=== PATIENT | male | born 1960 | race Caucasian/White ===

== ENCOUNTER 2024-02-23 12:06 | Emergency (ER) | payer OTHER, SELFPAY ==
[2024-02-23 12:19] VITALS: BP 142/88
[2024-02-23 12:37] LABS: % Basophils 0.5 % (0-2); % Eosinophils 2.8 % (0-6); % Immature Granulocytes 0.9 % (0-0.5); % Lymphocytes 21.8 % (20.5-51.1); % Monocytes 6.6 % (1.7-9.3); % Neutrophils 67.4 % (42.2-75.2); Absolute Eosinophils 0.2 10^3/uL (0-0.7); Absolute Immature Granulocytes 0.1 10^3/uL (0-0.05); Absolute Lymphocytes 1.2 10^3/uL (1.2-3.4); Absolute Monocytes 0.4 10^3/uL (0.1-0.6); Absolute Neutrophils 3.8 10^3/uL (1.4-6.5); Hematocrit 34.6 % (39.0-52.0); Hemoglobin 11.3 g/dL (13.0-18.0); Mean Corp Hgb Conc. 32.7 g/dL (33.0-37.0); Mean Corpuscular Hgb 19.6 pg (27.0-31.0); Mean Corpuscular Volume 59.9 fL (80.0-94.0); Nucleated Red Blood Cells % 0 % (-); Platelet Count 183 10^3/uL (130-400); Red Blood Cell Count 5.78 10^6/uL (4.70-6.10); Red Cell Dist. Width 16.3 % (11.5-14.5); White Blood Cell Count 5.6 10^3/uL (4.8-10.8)
[2024-02-23 12:52] VITALS: BP 149/89
[2024-02-23 13:00] VITALS: BP 126/78
[2024-02-23 13:00] LABS: ALT (SGPT) 37 U/L (0-50); AST (SGOT) 35 U/L (17-59); Albumin 4.9 g/dl (3.5-5.0); Alkaline Phosphatase 88 U/L (38-126); Blood Urea Nitrogen 20 mg/dl (9-20); Calcium 9.9 mg/dl (8.4-10.2); Carbon Dioxide 27 mmol/L (22-30); Chloride 106 mmol/L (98-107); Glucose 101 mg/dl (70-99); Potassium 4.6 mmol/L (3.5-5.1); Sodium 143 mmol/L (135-145); Total Bilirubin 0.9 mg/dl (0.2-1.3); Total Protein 7.6 g/dl (6.3-8.2); eGFR > 60.00
[2024-02-23 13:04] LABS: Troponin I < 0.012 ng/ml
[2024-02-23 15:38] LABS: Troponin I < 0.012 ng/ml
--- NOTE | 2024-02-23 16:39 | ED.GENMED ---
History of Present Illness
General
Chief Complaint: Chest Pain
Source: patient
Exam Limitations: none
Time Seen by Provider: 02/23/24 13:00
Nursing documentation reviewed up to this point in time: agreed with
Travel History
Have you had any contact with someone who has COVID-19?: No
Do you have any symptoms of coronavirus? Fever > 100 degrees, chills, cough, shortness of breath, sore throat, loss of taste or smell, muscle aches, or headache?: No
History of Present Illness
History of Present Illness:
Patient with history of hypertension and hypercholesterolemia, presents to ED secondary to sudden onset of left arm pain radiating up to his shoulder blade, while he was sitting down working. Denies chest pain or shortness of breath. Denies
dizziness. Denies diaphoresis. Denies nausea or vomiting. Denies neck pain. Denies loss of sensation or weakness. Denies headache. Denies recent illness. Denies recent change in medications or diet. Denies previous history of similar
symptoms. There is family history of heart disease. Patient does not smoke but does drink alcohol socially. Denies recent travel or surgery. Denies leg pain or swelling. Arm pain described as sharp, intermittent, with complete resolution of
symptoms at time of evaluation. Symptoms may have lasted less than an hour.
Past History
Past History
ED Past Medical History: Other (Thalassemia Minor Hgb has been as low as 8 in the past, highest 12.0)
ED Past Surgical History: Cholecystectomy
Social History
Tobacco: Non-smoker
Alcohol: Occasional
Personal:
Living: with family
Employment: Employed (manager gallery)
Review of Systems
Review of Systems
Allergies reviewed?: Yes
All Other Systems: ROS reviewed and negative except as documented in HPI and ROS
Constitutional: Reports no symptoms
EENT: Reports no symptoms
Respiratory: Reports no symptoms
Cardiac: Reports no symptoms
ABD/GI: Reports no symptoms
: Reports no symptoms
Musculoskeletal: Reports other (arm pain)
Skin: Reports no symptoms
Neurological: Reports no symptoms
Phy Exam
Physical Exam
Physical Exam:
Physical Exam
General: no apparent distress, not acutely ill. afebrile
Head: nc/at. eomi
Neck: supple. no meningeal signs. normal range of motion
Heart: s1/s2 regular rate and rhythm, no murmur. equal radial pulses.
Lungs: no acute respiratory distress. clear bilaterally
Abdomen: normal bowel sounds. not tender.
Neuro: alert and oriented. no focal neurological deficits
Skin: no rash
Psychiatric: well kept. interactive and cooperative
Extremities: no edema. no calf tenderness.
Scores
Heart Score for Chest Pain Patients
STEMI patient?: No
History: Slightly or Non-Suspicious
ECG: Normal
Age: >45 - <65 years
Risk Factors: 1 or 2 Risk Factors
Troponin: </= Normal Limit
Heart Score for Chest Pain Patients: 2
Heart Score Risk: 2.5% MACE over next 6 weeks
Course
Orders/Labs/Results
Orders:
Orders
02/23/24 12:08
Electrocardiogram (*1) Urgent
Reason for Study: Chest Pain
EKG- Treatment ONCE
02/23/24 12:27
Complete Blood Count/With Diff Urgent
Comprehensive Metabolic Panel Urgent
Troponin I Urgent
02/23/24 14:27
EKG- Treatment ONCE
02/23/24 14:55
Troponin I Urgent
02/23/24 15:00
Electrocardiogram (*1) Urgent
Reason for Study: Chest Pain
Abnormal Lab Results
02/23/24
12:27
Hgb 11.3 L g/dL
(13.0-18.0)
Hct 34.6 L %
(39.0-52.0)
MCV 59.9 L fL
(80.0-94.0)
MCH 19.6 L pg
(27.0-31.0)
MCHC 32.7 L g/dL
(33.0-37.0)
RDW 16.3 H %
(11.5-14.5)
Abs Immat Gran (auto) 0.1 H 10^3/uL
(0-0.05)
Immature Gran % 0.9 H %
(0-0.5)
Glucose 101 H mg/dl
(70-99)
02/23/24 12:27
02/23/24 12:27
Vital Signs
Initial and Last Documented VS:
Initial Vital Signs
Temp Pulse Resp BP Pulse Ox
98.1 F 62 18 142/88 99
02/23/24 12:19 02/23/24 12:19 02/23/24 12:19 02/23/24 12:19 02/23/24 12:19
Last Documented Vital Signs
Temp Pulse Resp BP Pulse Ox
98.1 F 56 18 126/78 97
02/23/24 12:19 02/23/24 13:45 02/23/24 16:46 02/23/24 16:46 02/23/24 16:46
MDM/Problems Addressed
MDM/Problems Addressed:
Patient with an atypical left arm pain, more likely musculoskeletal in etiology, less likely ACS. However, there is family history of heart disease, as such, patient will be discharged with referral to cardiology for an outpatient consultation.
Advised to return to ED with worsening symptoms.
*Critical Care Note
Total Time (30-74mins, 75-104mins- exclusive of procedures): Not Applicable
ED Attending Note
-
Portions of this chart may have been created with voice recognition software.� Occasional wrong word or��sound alike� substitutions may have occurred due to the inherent limitations of voice recognition software.
Discharge Plan
Departure
Patient Disposition: Home (Routine Discharge)
Date of Disposition: 02/23/24
Time of Disposition: 16:40
Patient with high blood pressure during this ER visit?: Yes
Discharge Problem:
Chest pain
Instructions: Chest Pain DCA Follow Up
Prescriptions:
No Action
aspirin 81 MG tablet,chewable
81 mg PO DAILY
escitalopram oxalate 10 MG tablet
10 mg PO DAILY
fenofibrate nanocrystallized 145 MG tablet
145 mg PO DAILY
Referrals:
Osmany Avalos MD [Active] -
Pako Santiago DO [Family Provider] -
Activity Restrictions/Additional Instructions:
As discussed, please follow-up with your [facility] for further evaluation and treatment. Please return to ED with worsening symptoms. You will be receiving phone call from [facility] office for an urgent outpatient consultation.
Interventions
Interventions:
*Risk Screen - Suicide Last Done: 02/23/24 16:46
*General Assessment Last Done: 02/23/24 16:46
*Neglect/Abuse Screening Last Done: 02/23/24 16:46
ED- Fall Risk Assessment Last Done: 02/23/24 16:46
*ED COVID-19 Vaccine History Last Done: 02/23/24 16:46
*Nursing Disposition Last Done: 02/23/24 16:46
ED- Cardiac Assessment Last Done: 02/23/24 13:04
Discharge Date and Time
Discharge Date/Time: 02/23/24 16:49
Print Language: SINHALA
[2024-02-23 16:46] VITALS: BP 126/78
== END 2024-02-23 16:49 | disposition home or self-care (01) ==
LOC: EMR 12:06
PROVIDERS: Emergency Medicine; EMERGENCY PHYSICIAN Emergency Medicine; FAMILY PHYSICIAN Internal Medicine
DX: R07.89 Other chest pain (principal); E78.00 Pure hypercholesterolemia, unspecified; I10 Essential (primary) hypertension; Z82.49 Family history of ischemic heart disease and other diseases of the circulatory system; Z90.49 Acquired absence of other specified parts of digestive tract; D56.3 Thalassemia minor
CPT/HCPCS: 99283; 80053; 84484; 85025; 93005

== ENCOUNTER → 2024-04-21 17:23 | Outpatient (REF) | payer OTHER, SELFPAY | LOC: RCS 17:23 | PROVIDERS: ATTENDING PHYSICIAN Nurse Practitioner; FAMILY PHYSICIAN Internal Medicine | DX: R07.89 Other chest pain (principal); I10 Essential (primary) hypertension; R06.09 Other forms of dyspnea | CPT/HCPCS: 93306 ==

== ENCOUNTER → 2024-04-29 07:33 | Outpatient (REF) | payer OTHER, SELFPAY | LOC: RCS 07:33 | PROVIDERS: ATTENDING PHYSICIAN Nurse Practitioner; FAMILY PHYSICIAN Internal Medicine | DX: R07.89 Other chest pain (principal); I10 Essential (primary) hypertension; R06.09 Other forms of dyspnea | CPT/HCPCS: 93017 ==

== ENCOUNTER → 2025-08-25 13:49 | Outpatient (REF) | payer MEDICARE, OTHER, SELFPAY | LOC: RAD 13:49 | PROVIDERS: ATTENDING PHYSICIAN Internal Medicine | DX: R31.0 Gross hematuria (principal) | CPT/HCPCS: 76770 ==

== ENCOUNTER → 2025-09-06 11:55 | Outpatient (REF) | payer MEDICARE, OTHER, SELFPAY | LOC: CLAB 11:55 | PROVIDERS: ATTENDING PHYSICIAN Student in an Organized Health Care Education/Training Program | DX: N32.9 Bladder disorder, unspecified (principal) | CPT/HCPCS: 88112 ==